=== PATIENT | female | born 1985 | race Caucasian/White ===

== ENCOUNTER → 2018-01-12 | Outpatient (CLI) | payer OTHER | END | disposition home or self-care (01) | LOC: RAD 15:56 | PROVIDERS: ATTEND Family Medicine | DX: M51.37 Other intervertebral disc degeneration, lumbosacral region (principal) | CPT/HCPCS: 72100 ==

== ENCOUNTER → 2018-09-14 | Outpatient (CLI) | payer OTHER | END | disposition home or self-care (01) | LOC: RAD 09:35 | PROVIDERS: ATTEND Family Medicine | DX: M17.11 Unilateral primary osteoarthritis, right knee (principal) ==

== ENCOUNTER 2019-09-21 13:59 | Inpatient (IN) | payer OTHER ==
[~2019-09-21] VITALS: Ht 162.6 cm; Wt 90.2 kg
[2019-09-21] MEDS ORDERED: LACTATED RINGERS 1,000 ML IV SCH (14:28)
[2019-09-21] MEDS ORDERED: OXYC5CAP2 PO (14:32)
[2019-09-21] MEDS ORDERED: IBUP200C8 PO (14:33)
[2019-09-21 14:54] VITALS: BP 129/94
[2019-09-21 14:54] LABS: HCG UR SG 1.028 (1.003-1.030)
[2019-09-21] MEDS ORDERED: PROPOFOL 10 MG/ML, 20ML ONE (14:54)
[2019-09-21] MEDS ORDERED: FENTANYL PF 250 MCG/5ML ONE (14:54)
[2019-09-21] MEDS ORDERED: GLYCOPYRROLATE 0.2MG/1ML, 5ML ONE (14:54)
[2019-09-21] MEDS ORDERED: DEXAMETHASONE 4 MG/ML, 1ML ONE (14:54)
[2019-09-21] MEDS ORDERED: NEOSTIGMINE 1 MG/ML, 10ML ONE (14:54)
[2019-09-21] MEDS ORDERED: MIDAZOLAM 1 MG/ML, 2ML ONE (14:54)
[2019-09-21] MEDS ORDERED: ONDANSETRON 2MG/ML, 2ML ONE (14:54)
[2019-09-21] MEDS ORDERED: SUCCINYLCHOLINE 20 MG/ML, 10ML ONE (14:54)
[2019-09-21] MEDS ORDERED: ROCURONIUM 10MG/ML,5ML ONE (14:54)
[2019-09-21] MEDS ORDERED: CEFAZOLIN 1,000 MG ONE (14:54)
[2019-09-21] MEDS ORDERED: LIDOCAINE/PF 1%-EPI 1:200K, 30 ML ONE (15:29)
[2019-09-21] MEDS ORDERED: EPINEPHRINE 1 MG/ML, 1ML ONE (15:29)
[2019-09-21] MEDS ORDERED: BUPIVACAINE/PF 0.5% ONE (15:29)
[2019-09-21] MEDS ORDERED: SCOPOLAMINE PATCH, 1.5MG PATCH.TD72 TD ONE (15:51)
[2019-09-21] MEDS ORDERED: LIDOCAINE-MPF 2% ,5ML ONE (16:01)
[2019-09-21] MEDS ORDERED: PROPOFOL 50 ML ONE (16:13)
[2019-09-21] MEDS ORDERED: PROMETHAZINE 25 MG/ML, 1ML IM PRN (17:00)
[2019-09-21] MEDS ORDERED: PROMETHAZINE 25 MG SUPP PR PRN (17:00)
[2019-09-21] MEDS ORDERED: OXYcodone 5 MG/5 ML ORAL.SOL UDC PO PRN (17:00)
[2019-09-21] MEDS ORDERED: PROMETHAZINE 25 MG/ML, 1ML IV PRN (17:00)
[2019-09-21] MEDS ORDERED: ONDANSETRON ODT 8 MG PO PRN (17:00)
[2019-09-21] MEDS ORDERED: ONDANSETRON 2MG/ML, 2ML IV PRN (17:00)
[2019-09-21] MEDS ORDERED: HYDROmorphone 2 MG/ML, 1ML IVPush PRN ×2 (17:00→18:00)
[2019-09-21] MEDS ORDERED: ACETAMINOPHEN 325 MG TABLET PO PRN (17:00)
[2019-09-21] MEDS ORDERED: MEPERIDINE/PF 25MG/ML,1ML IVPush PRN (17:00)
[2019-09-21] MEDS ORDERED: LORazepam 2 MG/ML, 1ML IVPush PRN (17:00)
[2019-09-21] MEDS ORDERED: HYDROmorphone 2 MG/ML, 1ML ONE (17:22)
[2019-09-21] MEDS ORDERED: OXYcodone/APAP 5/325MG TABLET PO PRN (18:00)
[2019-09-21] MEDS ORDERED: ONDANSETRON 2MG/ML, 2ML IVPush PRN (18:00)
[2019-09-21] MEDS ORDERED: ENOXAPARIN 40 MG/0.4 ML SQ SCH (18:00)
[2019-09-21] MEDS: FENTANYL PF 100 MCG/2ML IV PRN ×3 (18:06→18:30)
[2019-09-21] MEDS ORDERED: FENTANYL PF 100 MCG/2ML ONE (18:06)
[2019-09-21] MEDS ORDERED: OXYcodone 5 MG/5 ML ORAL.SOL UDC ONE (18:06)
[2019-09-21] MEDS ORDERED: DIAZEPAM 5 MG/ML, 2ML ONE (18:34)
[2019-09-21] MEDS ORDERED: DIAZEPAM 5 MG/ML, 10ML VIAL IVPush ONE (19:00)
[2019-09-21] MEDS ORDERED: ASPI-191 PO (19:50)
[2019-09-21 20:09] VITALS: BP 105/69
[2019-09-21] MEDS ORDERED: CEFAZOLIN PMX 1GM/50ML 50 ML IVPB SCH (23:00)
== END 2019-09-21 22:35 | disposition home or self-care (01) | DRG 482 ==
LOC: ORIP 13:59 → 4NE 19:21
PROVIDERS: ADMIT Orthopaedic Surgery; ATTEND Orthopaedic Surgery
PROC: 0SBC4ZZ Excision of Right Knee Joint, Percutaneous Endoscopic Approach (ICD-10-PCS; 2019-09-21)
PROC: 0QSB04Z Reposition Right Lower Femur with Internal Fixation Device, Open Approach (ICD-10-PCS; 2019-09-21)
PROC: 0SQC4ZZ Repair Right Knee Joint, Percutaneous Endoscopic Approach (ICD-10-PCS; 2019-09-21)
PROC: 3E0T3BZ Introduction of Anesthetic Agent into Peripheral Nerves and Plexi, Percutaneous Approach (ICD-10-PCS; principal; 2019-09-21 16:00)
DX: M17.11 Unilateral primary osteoarthritis, right knee (principal); S83.281A Other tear of lateral meniscus, current injury, right knee, initial encounter; E66.9 Obesity, unspecified; M21.061 Valgus deformity, not elsewhere classified, right knee; M94.261 Chondromalacia, right knee; Z79.899 Other long term (current) drug therapy; Z68.34 Body mass index [BMI] 34.0-34.9, adult
CPT/HCPCS: 73552; 76000; J3490; 81025; C1713; G0378; J0171; J0690; J1100; J1170; J2250; J2405; J2704; J2710; J3010; J3360; J0330